=== PATIENT | male | born 1945 | race Caucasian/White ===

== ENCOUNTER → 2017-06-11 | Outpatient (CLI) | payer MEDICARE ==
[~2017-06-11] MED LIST: ALLO100T PO; ASPI81TA82 PO; ATOR40TA16 PO; ATOR40TA49 PO; BENI20TA5 PO; BENI40TA30 PO; CARV3.12 PO; CARV3.125 PO; FISH1000 PO; GEMF600T PO; HYDR200T3 PO; MULTTAB67 PO; PANT40TA3 PO; PERC5TAB12 PO; PRED1 PO; PROT40TA PO; VITA2000 PO
[2017-06-11 11:28] LABS: AUTOMATED NEUTROPHIL # 2.3 TH/MM3 (1.8-7.7); BASOPHIL % 0.5 % (0.0-2.0); EOSINOPHIL # 0.2 TH/MM3 (0-0.4); EOSINOPHIL % 4.1 % (0.0-4.0); HEMATOCRIT 41.3 % (39.0-51.0); HEMO FLAGS DIFF FINAL; MEAN CELL VOLUME 96.3 FL (80.0-100.0); MEAN CORPUSCULAR HEMOGLOBIN 32.4 PG (27.0-34.0); MEAN CORPUSCULAR HGB CONC 33.6 % (32.0-36.0); MONO % 12.5 % (0.0-8.0); NEUT % 57.9 % (16.0-70.0); PLATELET COUNT 176 TH/MM3 (150-450); RED BLOOD COUNT 4.29 MIL/MM3 (4.50-5.90); RED CELL DISTRIBUTION WIDTH 14.1 % (11.6-17.2); WHITE BLOOD COUNT 3.9 TH/MM3 (4.0-11.0)
[2017-06-11 11:31] LABS: BACTERIA, URINE RARE /hpf; BLOOD, URINE NEG (NEG); COMMENT (UR) CULT NOT INDICATED; CULTURE IF INDICATED CULT NOT INDICATED; GLUCOSE,URINE NEG (NEG); KETONE, URINE NEG (NEG); MUCUS URINE FEW /lpf (OCC); NITRITE,URINE NEG (NEG); URINE COLOR LIGHT-YELLOW (YELLW/STRAW)
[2017-06-11 11:41] LABS: APTT (PATIENT) 25.8 SEC (24.3-30.1); PROTHROMBIN TIME - PATIENT 10.7 SEC (9.8-11.6)
[2017-06-11 11:59] LABS: BICARBONATE 29.2 MEQ/L (21.0-32.0); POTASSIUM 4.4 MEQ/L (3.5-5.1)
--- NOTE | 2017-06-11 14:33 | RADRPT ---
EXAM DATE/TIME: 06/11/2017 11:52 [place] COMPARISON: No previous studies available for comparison. INDICATIONS : Evaluate for pneumonia, pneumothorax or communicable disease. Pre op right carotid endarterectomy. MEDICAL HISTORY : Hypertension. SURGICAL HISTORY : None. ENCOUNTER: Initial ACUITY: 1 day PAIN SCORE: 0/10 LOCATION: Bilateral chest FINDINGS: PA and lateral views of the chest demonstrate the lungs to be symmetrically aerated without evidence of mass, infiltrate or effusion. Calcified granuloma within the right midlung. The cardiomediastinal contours are unremarkable. Osseous structures are intact. CONCLUSION: No acute disease. Marvin Strauss Jr., MD on June 11, 2017 at 14:31 Board Certified Radiologist. This report was verified electronically.
--- NOTE | 2017-06-12 15:33 | EKG ---
Date Performed: 06/11/2017 Time Performed: 11:12:57 PTAGE: 71 years EKG: Sinus rhythm WITH OCCASIONAL VENTRICULAR PREMATURE COMPLEXES BORDERLINE ECG PREVIOUS TRACING 10/24/13 Since the prior tracing, the sinus tachycardia has resolved and the P VCs are new. Previously noted minimal ST depression is no longer evident. DOCTOR: Renae Doe Interpretating Date/Time 06/12/2017 15:32:48
== END ==
LOC: CPRE 10:51
PROVIDERS: ATTEND Surgery
DX: I65.21 Occlusion and stenosis of right carotid artery (principal); Z01.810 Encounter for preprocedural cardiovascular examination
CPT/HCPCS: 36415; 71020; 80048; 81001; 85025; 85610; 85730; 86850; 86900; 86901; 93005

== ENCOUNTER 2017-06-12 05:41 | Inpatient (IN) | payer MEDICARE ==
[~2017-06-12] VITALS: Ht 180.3 cm; Wt 94.1 kg
[~2017-06-12 05:41] MED LIST changes: -ASPI81TA82 PO; -ATOR40TA49 PO; -BENI40TA30 PO; -CARV3.125 PO; -FISH1000 PO; -PERC5TAB12 PO; -PRED1 PO; -PROT40TA PO
[2017-06-12] MEDS ORDERED: LACTATED RINGER'S 1000 ML IV PRN (06:00)
[2017-06-12] MEDS ORDERED: METOPROLOL TARTRATE 25 MG TAB PO PRN (06:00)
[2017-06-12] MEDS ORDERED: CHLORHEXIDINE GLUCONATE 2 % 1 PACK (2 CLOTHS) TOPICAL PRN (06:00)
[2017-06-12] MEDS ORDERED: INSULIN HUMAN REGULAR 1,000 UNITS/10 ML VIAL SQ PRN (06:00)
[2017-06-12] MEDS ORDERED: SODIUM CHLORID 0.9% 500 ML IV PRN (06:00)
[2017-06-12] MEDS ORDERED: POVIDONE IODINE 5% (ANTISEPSIS KIT) 4 APPLICATIONS EACH NARE PRN (06:00)
[2017-06-12] MEDS ORDERED: HEPARIN SODIUM - IV 10,000 UNITS/10 ML VIAL ONE (07:42)
[2017-06-12] MEDS ORDERED: BUPIVACAINE HCL PF 0.5% 30 ML VIAL ONE (07:42)
[2017-06-12] MEDS ORDERED: THROMBIN (TOPICAL) 20,000 UNIT SPRAY KIT ONE (07:43)
[2017-06-12] MEDS ORDERED: PROTAMINE SULFATE 50 MG/5 ML VIAL ONE (07:45)
[2017-06-12] MEDS ORDERED: DEXAMETHASONE SOD PHOS 4 MG/ML VIAL ONE (08:20)
[2017-06-12] MEDS ORDERED: FAMOTIDINE 20 MG/2 ML VIAL ONE (08:20)
[2017-06-12] MEDS ORDERED: ceFAZolin 2 GM PREMIX 50 ML ONE (08:39)
--- NOTE | 2017-06-12 08:40 | PD.VS.PN ---
Pre-operative Note Pre-operative diagnosis: symptomatic R carotid stenosis Planned procedure: R CEA Interval History: Pt has had no interval changes since seen in clinic on Sunday. Specifically, no more AF/TIA/CVA. Labs: no problems Blood: T&S Imaging: duplex reviewed: >80% R Carotid stenosis Orders: NPo Ancef 2g IV OCTOR Post-operative destination: CVICU/ISC Operative site marked: Yes Consent: Informed consent has been obtained from Armand Nava. I have explained the procedure in detail and discussed the risks, benefits, and potential complications. All questions have been answered. Patient contact information: (Melinda) [phone] Armand Sorto MD Jun 12, 2017 08:40
[2017-06-12] MEDS: ALLOPURINOL 100 MG TAB PO SCH ×2 (09:00→20:37)
[2017-06-12] MEDS: CARVEDILOL 3.125 MG TAB PO SCH ×2 (09:00→20:37)
[2017-06-12] MEDS ORDERED: HYDROmorphone HCL 2 MG TAB PO PRN (09:00)
[2017-06-12] MEDS: DOCUSATE SODIUM 100 MG CAP PO SCH ×2 (09:30→20:37)
[2017-06-12] MEDS: LOSARTAN 50 MG TAB PO SCH (09:45)
[2017-06-12] MEDS: MULTIVITAMIN TAB PO SCH (09:45)
[2017-06-12] MEDS: ASPIRIN 325 MG TAB PO SCH (10:00)
[2017-06-12] MEDS: HYDROXYCHLOROQUINE SULFATE 200 MG TAB PO SCH (10:00)
[2017-06-12] MEDS: GEMFIBROZIL 600 MG TAB PO SCH ×2 (10:00→20:37)
[2017-06-12] MEDS: CHOLECALCIFEROL (VIT D3) 1000 UNIT TAB PO SCH (10:00)
[2017-06-12] MEDS: PANTOPRAZOLE SOD 40 MG DELAYED RELEASE TAB PO SCH (10:00)
--- NOTE | 2017-06-12 11:46 | HHI.PR ---
Immediate Post Op Note Procedure Date: Jun 12, 2017 Pre Op Diagnosis: symptomatic R carotid stenosis Post Op Diagnosis: symptomatic R carotid stenosis Surgeon: Armand Sorto Heat Regulator(s): none Procedure: R CEA Findings: high carotid soft stenosis awoke neuro intact Complications: none Specimen(s) removed: none for pathology Estimated blood loss: 100mL Anesthesia: General Drains: None Fluids: 1300 mL x'oid; 350 mL UOP IVF Patient to: PACU Patient Condition: Good Implant/Devices: SEE IMPLANT LOG (if applicable) Date/Time of Procedure: SEE SURGICAL CARE RECORD Armand Sorto MD Jun 12, 2017 11:46
[2017-06-12] MEDS ORDERED: DO NOT ADM ANY ANTICOAGULANT DRUGS PRN (11:50)
[2017-06-12] MEDS ORDERED: PHENYLEPH/NS 1000 MCG/10 ML SYR IV ONE (12:00)
[2017-06-12] MEDS ORDERED: NEOSTIGMINE 3 MG/3 ML SYR IV ONE (12:00)
[2017-06-12] MEDS ORDERED: SODIUM CHLORID 0.9% 500 ML INJ 500 ML IV ONE (12:00)
[2017-06-12] MEDS ORDERED: PHENYLEPHRINE HCL 10 MG/ML VIAL IV ONE (12:00)
[2017-06-12] MEDS ORDERED: SODIUM CHLOR 0.9% 250 ML INJ 250 ML IV ONE (12:00)
[2017-06-12] MEDS ORDERED: PROPOFOL 200 MG/20 ML AMP IV ONE (12:00)
[2017-06-12] MEDS ORDERED: NORMOSOL R INJ 1,000 ML IV ONE (12:00)
[2017-06-12] MEDS ORDERED: ONDANSETRON HCL 4 MG/2 ML VIAL IV PUSH ONE (12:00)
[2017-06-12] MEDS: LACTATED RINGER'S 1000 ML INJ 1,000 ML IV SCH (12:10)
[2017-06-12] MEDS ORDERED: *morphine SULFATE 8 MG/ML PERIprocedure ONLY ONE (14:13)
[2017-06-12] MEDS ORDERED: METOPROLOL TARTRATE 5 MG/5 ML VIAL ONE (14:33)
--- NOTE | 2017-06-12 14:59 | PD.CONS ---
[facility] Service Critical Care Medicine Consult Requested By Vascular Surgery Service Reason for Consult Critical Care Primary Care Physician Helene Chadwick MD History of Present Illness 71 y/o man with repeated amaurosis fugax associated with high grade right carotid occlusive disease. Presented today to PACU following uneventful right carotid endarterectomy. Awake, alert, O X 3, cooperative. Protects airway well, breathing comfortably. Review of Systems ROS No chest pain or SOB. No headache. Past Family Social History Allergies: Coded Allergies: No Known Allergies (Unverified , 06/11/17) Past Medical History NSTEMI Basal cell carcinoma. Hypertension. Pre-diabetes GIST tumor (presented with hemorrhage) Physical Exam Vital Signs Vital Signs Date Time Temp Pulse Resp B/P (MAP) Pulse Ox O2 Delivery O2 Flow Rate FiO2 06/12/17 14:30 120 19 108/63 (78) 95 Nasal Cannula 2 06/12/17 14:00 110 12 126/68 (87) 95 Nasal Cannula 2 06/12/17 13:30 104 12 126/68 (87) 94 Nasal Cannula 2 06/12/17 13:00 105 15 132/69 (90) 94 Nasal Cannula 2 06/12/17 12:45 102 12 128/69 (88) 94 Nasal Cannula 2 06/12/17 12:30 98 14 129/64 (85) 94 Nasal Cannula 2 06/12/17 12:15 97 16 126/63 (84) 94 Nasal Cannula 2 06/12/17 12:00 90 14 140/69 (92) 93 Nasal Cannula 2 06/12/17 11:52 98.1 95 16 155/74 (101) 92 Nasal Cannula 2 06/12/17 07:15 98.0 81 18 142/82 (102) 96 Physical Exam P 127, SBP 108, R 14 nonlabored HeadL NL. Neck: Minimal swelling right neck, soft. No stridor or obstruction. Lungs: Clear. Heart: NL S1S2, tachycradia, No JVD, No m,r Abdomen: Benign, soft. Extremities; Warm,well perfused. Neuro: GAMALIEL, 2 mm, reactive briskly. Moves 4 limbs to command with 5/5 strength. O X 3, conversant, speech clear. Assessment and Plan Assessment and Plan Assessment: 1. Extracranial carotid occlusive disease -> Right carotid endarterectomy. 2. Preop amaurosis fugax right eye. 3. Pre-diabetes. 4. Hx hypertension. 5. Tachycardia Plan: 1. Neuro checks. 2. SSI for euglycemia prn - loose coverage, avoid hypoglycemia. 3. Antiplatelet rx per Dr. Sorto. 4. Lopressor 2.5 mg iv q3h prn P > 115. 5. Continued scheduled Coreg. Overall impression: Normal neurological exam following right carotid endarterectomy. Moderate tachycardia, cover with prn iv lopressor. Watch glucose closely. Hermilo Correa MD Jun 12, 2017 14:59
[2017-06-12] MEDS ORDERED: GLUCAGON 1 MG/ML VIAL OTHER PRN (15:00)
[2017-06-12] MEDS ORDERED: DEXTROSE 50% IN WATER 50 ML VIAL(D50) IV PRN (15:00)
[2017-06-12] MEDS ORDERED: METOPROLOL TARTRATE 5 MG/5 ML VIAL IV PUSH PRN (15:45)
[2017-06-12] MEDS: INSULIN ASPART SUPPLEMENTAL SCALE SQ SCH ×2 (16:00→21:04)
[2017-06-12 16:45] VITALS: PULSE 123
--- NOTE | 2017-06-12 17:16 | PD.VS.PN ---
Subjective POD #: 0 Procedure(s): R CEA for symptomatic carotid stenosis Subjective/Hospital Course no HARRELL. Feels well overall migue some diet so far Objective Vitals/I&O Date Time Temp Pulse Resp B/P (MAP) Pulse Ox O2 Delivery O2 Flow Rate FiO2 06/12/17 16:00 98.7 112 17 140/78 (98) 94 Nasal Cannula 2 06/12/17 15:30 120 16 155/71 (99) 95 Nasal Cannula 2 06/12/17 15:00 111 14 129/72 (91) 95 Nasal Cannula 2 06/12/17 14:30 120 19 108/63 (78) 95 Nasal Cannula 2 06/12/17 14:00 110 12 126/68 (87) 95 Nasal Cannula 2 06/12/17 13:30 104 12 126/68 (87) 94 Nasal Cannula 2 06/12/17 13:00 105 15 132/69 (90) 94 Nasal Cannula 2 06/12/17 12:45 102 12 128/69 (88) 94 Nasal Cannula 2 06/12/17 12:30 98 14 129/64 (85) 94 Nasal Cannula 2 06/12/17 12:15 97 16 126/63 (84) 94 Nasal Cannula 2 06/12/17 12:00 90 14 140/69 (92) 93 Nasal Cannula 2 06/12/17 11:52 98.1 95 16 155/74 (101) 92 Nasal Cannula 2 06/12/17 07:15 98.0 81 18 142/82 (102) 96 06/12/17 06/12/17 06/12/17 07:00 15:00 23:00 Intake Total 1400 ml 100 ml Output Total 450 ml 350 ml Balance 950 ml -250 ml Exam: R neck incision c/d/i neck soft asymmetric smile but CN XII intact EDUARDO x 4 Assessment and Plan Plan 1. Continue neuro checks 2. BP control: SBP goal 140 3. HR control 4. Reg diet 5. Anticipate d/c sanchez tomorrow and d/c to home Armand Sorto MD Jun 12, 2017 17:16
[2017-06-12 18:00] VITALS: PULSE 114
[2017-06-12 20:00] VITALS: PULSE 119
[2017-06-12] MEDS ORDERED: ATORVASTATIN 40 MG TAB PO SCH (21:00)
[2017-06-12 22:00] VITALS: PULSE 77
[2017-06-13] VITALS (7 sets, daily range): BP systolic 130; BP diastolic 73; PULSE 73–112; RESP 22; TEMP 98.4; O2SAT 95
--- NOTE | 2017-06-13 00:04 | MP ---
cc: ABUNDIO SORTO MD DATE OF SURGERY 06/12/17 PREOPERATIVE DIAGNOSIS Right symptomatic carotid stenosis. POSTOPERATIVE DIAGNOSIS Right symptomatic carotid stenosis. PROCEDURE Right carotid endarterectomy. MEDICATIONS Abundio Sorto MD ANESTHESIA General. INDICATION Mr. Nava is a 71-year-old gentleman with a symptomatic right carotid stenosis that has manifested in several episodes amaurosis. He is taken to the operating room for carotid endarterectomy. DESCRIPTION OF PROCEDURE Informed consent was obtained and the patient is taken to the operating room and placed supine on the operating table. An appropriate time-out was taken to ensure the patient's identity, the operative site and planned procedure. Administration of 2 grams of Ancef was initiated prior to skin incision and will be discontinued after single preoperative dose. Everyone in the room agreed to timeout and we proceeded. His right neck was prepped and draped. Incision was made along the anterior border of sternocleidomastoid, carried down to subcutaneous tissue with electrocautery. The platysma was divided and the facial vein was identified and dissected free and ligated with 3-0 silks. The jugular vein was identified and the medial branches of it were divided between 3-0 silks and this provided exposure to the carotid artery. Common carotid artery was encircled with vessel loop. The external carotid artery, superior thyroid and distal internal carotid artery was identified and dissected free and encircled with vessel loop. The hypoglossal nerve was easily identified and maintained visualization throughout the entire procedure. The patient was systemically heparinized, once the ACT was over 250 distal and proximal of the carotid artery were obtained with profunda clamps and a longitudinal arteriotomy was made with an 11 blade and extended with Oneal scissors. The plaque was soft and extended up several centimeters past the carotid bifurcation. The carotid was endarterectomized without any difficulty and a solitary tacking suture was made at the distal aspect of the suture line. The endarterectomized artery was carefully and copiously flushed with heparinized saline and the artery was closed by sewing on a bovine pericardial patch which was affixed with 5-0 Prolene suture. At the completion it was flushed and noted to be hemostatic with several repair sutures. There was a nice Doppler signal in the distal internal carotid artery as well as the external carotid artery. The heparin reversed with protamine. Hemostasis was achieved and the wound was closed with 2-0 Polysorb, 3-0 Polysorb and 4-0 Monocryl. Sponge, needle counts were correct at the end of the case. I was present for the entire procedure and at the conclusion of the case the patient was awoken and was neurologically intact. MD MOOK Calderon/EMILY /4:53 PM /11:51 PM MTDD
[2017-06-13 05:43] LABS: HEMATOCRIT 38.4 % (39.0-51.0); MEAN CELL VOLUME 96.4 FL (80.0-100.0); MEAN CORPUSCULAR HGB CONC 34.2 % (32.0-36.0); PLATELET COUNT 165 TH/MM3 (150-450); RED BLOOD COUNT 3.98 MIL/MM3 (4.50-5.90); RED CELL DISTRIBUTION WIDTH 13.8 % (11.6-17.2); REVIEW FLAG FINAL; WHITE BLOOD COUNT 8.3 TH/MM3 (4.0-11.0)
[2017-06-13 06:04] LABS: BICARBONATE 28.1 MEQ/L (21.0-32.0); POTASSIUM 4.2 MEQ/L (3.5-5.1)
[2017-06-13] MEDS: INSULIN ASPART SUPPLEMENTAL SCALE SQ SCH (07:00)
[2017-06-13] MEDS: LOSARTAN 50 MG TAB PO SCH (08:44)
[2017-06-13] MEDS: GEMFIBROZIL 600 MG TAB PO SCH (08:44)
[2017-06-13] MEDS: ASPIRIN 325 MG TAB PO SCH (08:44)
[2017-06-13] MEDS: PANTOPRAZOLE SOD 40 MG DELAYED RELEASE TAB PO SCH (08:44)
[2017-06-13] MEDS: DOCUSATE SODIUM 100 MG CAP PO SCH (08:44)
[2017-06-13] MEDS: ALLOPURINOL 100 MG TAB PO SCH (08:44)
[2017-06-13] MEDS: CHOLECALCIFEROL (VIT D3) 1000 UNIT TAB PO SCH (08:44)
[2017-06-13] MEDS: HYDROXYCHLOROQUINE SULFATE 200 MG TAB PO SCH (08:44)
[2017-06-13] MEDS: MULTIVITAMIN TAB PO SCH (08:44)
[2017-06-13] MEDS: CARVEDILOL 3.125 MG TAB PO SCH (08:45)
[2017-06-13] MEDS: LACTATED RINGER'S 1000 ML INJ 1,000 ML IV SCH (09:49)
--- NOTE | 2017-06-13 09:51 | PD.VS.PN ---
Subjective POD #: 1 Procedure(s): R CEA for symptomatic carotid stenosis Subjective/Hospital Course Pt sitting in chair eating breakfast w/o difficulty Pt denies H/a Incision to R side of neck intact with surgical glue Objective Vitals/I&O Date Time Temp Pulse Resp B/P (MAP) Pulse Ox O2 Delivery O2 Flow Rate FiO2 06/13/17 08:00 84 06/13/17 07:00 98 Nasal Cannula 2.00 06/13/17 06:00 83 06/13/17 04:08 95 Nasal Cannula 2.00 06/13/17 04:00 90 06/13/17 02:00 73 06/13/17 00:00 93 06/12/17 22:00 77 06/12/17 20:00 119 06/12/17 19:00 95 Nasal Cannula 2.00 06/12/17 18:00 114 06/12/17 16:45 97 Nasal Cannula 2.00 06/12/17 16:45 123 06/12/17 16:00 98.7 112 17 140/78 (98) 94 Nasal Cannula 2 06/12/17 15:30 120 16 155/71 (99) 95 Nasal Cannula 2 06/12/17 15:00 111 14 129/72 (91) 95 Nasal Cannula 2 06/12/17 14:30 120 19 108/63 (78) 95 Nasal Cannula 2 06/12/17 14:00 110 12 126/68 (87) 95 Nasal Cannula 2 06/12/17 13:30 104 12 126/68 (87) 94 Nasal Cannula 2 06/12/17 13:00 105 15 132/69 (90) 94 Nasal Cannula 2 06/12/17 12:45 102 12 128/69 (88) 94 Nasal Cannula 2 06/12/17 12:30 98 14 129/64 (85) 94 Nasal Cannula 2 06/12/17 12:15 97 16 126/63 (84) 94 Nasal Cannula 2 06/12/17 12:00 90 14 140/69 (92) 93 Nasal Cannula 2 06/12/17 11:52 98.1 95 16 155/74 (101) 92 Nasal Cannula 2 06/13/17 06/13/17 06/13/17 07:00 15:00 23:00 Intake Total 814 ml Output Total 1750 ml Balance -936 ml Exam: GENERAL: A&OX3, GCS15,NAD SKIN: Warm and dry NECK: Incision to right side of neck with swelling present Pt w/ improved right sided facial deficit (right lip) Pt w/o speech or swallowing deficit Pt denies headache, unilateral weakness or visual changes Laboratory Laboratory Tests Test 06/12/17 17:00 06/13/17 04:17 Nasal Screen MRSA (PCR) MRSA NOT DETECTED White Blood Count 8.3 Red Blood Count 3.98 Hemoglobin 13.2 Hematocrit 38.4 Mean Corpuscular Volume 96.4 Mean Corpuscular Hemoglobin 33.0 Mean Corpuscular Hemoglobin Concent 34.2 Red Cell Distribution Width 13.8 Platelet Count 165 Mean Platelet Volume 8.2 Blood Urea Nitrogen 13 Creatinine 1.21 Random Glucose 114 Calcium Level 8.8 Sodium Level 142 Potassium Level 4.2 Chloride Level 107 Carbon Dioxide Level 28.1 Anion Gap 7 Estimat Glomerular Filtration Rate 59 Assessment and Plan Assessment: (1) Carotid artery disease without cerebral infarction Plan 1. Continue neuro checks 2. BP control: SBP goal 140 3. HR control 4. Reg diet 5. Anticipate d/c sanchez tomorrow and d/c to home Discharge Planning Pt is POD 1 R CEA w/o complications Plan D/C to home today with f/u next week in our OPC Pt agreed w/ plan Arranged OP f/u Michelle COSBY [facility] [phone] Michelle Valencia Jun 13, 2017 09:51
[2017-06-13] MEDS ORDERED: PERC5TAB12 PO (09:55)
--- NOTE | 2017-06-13 10:06 | PD.VS.DC ---
Discharge Summary Admission Date: Jun 12, 2017 at 05:41 Discharge Date: Jun 13, 2017 Admission Diagnosis: (1) Carotid artery disease without cerebral infarction (2) Anemia due to gastrointestinal blood loss (3) Non-ST elevation SC (NSTEMI) Discharge Diagnosis: (1) Carotid artery disease without cerebral infarction ICD Codes: I77.9 - Disorder of arteries and arterioles, unspecified Status: Acute Brief History from admission 71 y/o man with repeated amaurosis fugax associated with high grade right carotid occlusive disease Procedure(s): R CEA for symptomatic carotid stenosis Significant Findings GENERAL: A&OX3, GCS15,NAD SKIN: Warm and dry NECK: Incision to right side of neck with swelling present Pt w/ improved right sided facial deficit (right lip) Pt w/o speech or swallowing deficit Pt denies headache, unilateral weakness or visual changes Laboratory Tests Test 06/12/17 17:00 06/13/17 04:17 Red Blood Count 3.98 MIL/MM3 (4.50-5.90) Hematocrit 38.4 % (39.0-51.0) Random Glucose 114 MG/DL (74-106) Estimat Glomerular Filtration Rate 59 ML/MIN (>89) Hospital Course: 71 y/o man with repeated amaurosis fugax associated with high grade right carotid occlusive disease Pt with a Hx of symptomatic carotid stenosis R CEA intervention done on 06/12/17 w/o complications Pt to be d/c home with Allergies Coded Allergies Type Severity Reaction Last Updated Verified No Known Allergies 06/11/17 No 06/11/17 06/11/17 06/12/17 06/12/17 06/13/17 06/13/17 06:00 18:00 06:00 18:00 06:00 18:00 Intake Total 1959 ml 814 ml Output Total 1200 ml 1750 ml Balance 759 ml -936 ml Intake Oral 440 ml 360 ml IV Total 219 ml 454 ml Other 1300 ml Output Urine Total 1100 ml 1750 ml Estimated Blood Loss 100 ml # Bowel Movements 0 0 Laboratory Tests Test 06/12/17 17:00 06/13/17 04:17 Nasal Screen MRSA (PCR) MRSA NOT DETECTED White Blood Count 8.3 TH/MM3 Red Blood Count 3.98 MIL/MM3 Hemoglobin 13.2 GM/DL Hematocrit 38.4 % Mean Corpuscular Volume 96.4 FL Mean Corpuscular Hemoglobin 33.0 PG Mean Corpuscular Hemoglobin Concent 34.2 % Red Cell Distribution Width 13.8 % Platelet Count 165 TH/MM3 Mean Platelet Volume 8.2 FL Blood Urea Nitrogen 13 MG/DL Creatinine 1.21 MG/DL Random Glucose 114 MG/DL Calcium Level 8.8 MG/DL Sodium Level 142 MEQ/L Potassium Level 4.2 MEQ/L Chloride Level 107 MEQ/L Carbon Dioxide Level 28.1 MEQ/L Anion Gap 7 MEQ/L Estimat Glomerular Filtration Rate 59 ML/MIN Orders Procedure Category Date Status Time Lactated Ringer's MED 06/12/17 In Process 1000 Ml Inj (Lr 1000 M 06:00 Metoprolol Tartrate MED 06/12/17 In Process (Lopressor) 06:00 Povidone Iod 5% MED 06/12/17 In Process Antisepsis Kit 06:00 Chlorhexidine 2% MED 06/12/17 In Process Cloth (Chlorhexidine 06:00 Insulin Human Regular MED 06/12/17 In Process Inj (Novolin R Inj 06:00 Sodium Chlorid 0.9% MED 06/12/17 In Process 500 Ml Inj (Ns 500 M 06:00 Heparin Inj (Heparin MED 06/12/17 Complete Inj) 07:42 Bupivacaine Pf 0.5% MED 06/12/17 Complete Inj (Marcaine Pf 0.5 07:42 Thrombin Top [place] MED 06/12/17 Complete (Thrombin Top [place]) 07:43 Protamine Sulfate Inj MED 06/12/17 Complete (Protamine Sulfate 07:45 Dexamethasone Inj MED 06/12/17 Complete (Decadron Inj) 08:20 Famotidine Inj MED 06/12/17 Complete (Pepcid Inj) 08:20 Cefazolin 2 Gm Premix MED 06/12/17 Complete (Ancef 2 Gm Premix 08:39 Admit To Inpatient ADMITTING 06/12/17 Transmitted Code Status CODE 06/12/17 Transmitted 08:59 Salt Cutter / BISI 06/12/17 In Process Telemetry 08:59 Activity Oob Ad Marycarmen BISI 06/13/17 In Process 08:59 Activity Bed Rest BISI 06/12/17 In Process 08:59 Notify Parameters BISI 06/12/17 In Process 08:59 Diet Heart Healthy DIET 06/12/17 Transmitted Breakfast Basic Metabolic Panel LAB 06/13/17 Complete (Bmp) 06:00 Cbc No Diff, Includes LAB 06/13/17 Complete Plts 06:00 Consult Supervisor Nut Processing CONS 06/12/17 Transmitted Lactated Ringer's MED 06/12/17 In Process 1000 Ml Inj (Lr 1000 M 10:00 Aspirin (Aspirin) MED 06/12/17 In Process 10:00 Pantoprazole MED 06/12/17 In Process (Protonix) 10:00 Atorvastatin (Lipitor) MED 06/12/17 In Process 21:00 Oxycodone (Roxicodone) MED 06/12/17 In Process 09:00 Hydromorphone MED 06/12/17 In Process (Dilaudid) 09:00 Docusate Sodium MED 06/12/17 In Process (Colace) 09:30 Inpatient ADMITTING 06/12/17 Transmitted Certification Allopurinol (Zyloprim) MED 06/12/17 In Process 09:00 Carvedilol (Coreg) MED 06/12/17 In Process 09:00 Cholecalciferol MED 06/12/17 In Process (Vitamin D3) 10:00 Gemfibrozil (Lopid) MED 06/12/17 In Process 10:00 Hydroxychloroquine MED 06/12/17 In Process (Plaquenil) 10:00 Multivitamin MED 06/12/17 In Process (Theragran) 09:45 Losartan (Cozaar) MED 06/12/17 In Process 09:45 (Hub Use Only)Inp Phy CONS 06/12/17 Transmitted Cons/Ref Urinary Catheter BISI 06/12/17 In Process Management 09:29 Fentanyl Inj MED 06/12/17 Complete (Fentanyl Inj) 12:03 Misc Nursing MED 06/12/17 In Process Information 11:50 *Morphine Inj MED 06/12/17 Complete (*Morphine Inj 14:13 Metoprolol Tartrate MED 06/12/17 Complete Inj (Lopressor Inj) 14:33 Am Admit Pre Op Care [facility] 06/12/17 Complete Bedside Glucose BISI 06/12/17 In Process 14:59 Blood Glucose Goal BISI 06/12/17 In Process (Criteria) 14:59 Hypoglycemia 70 Mg/Dl BISI 06/12/17 In Process Or < 14:[address]: Other BISI 06/12/17 In Process 14:59 Dextrose 50% In Gildardo MED 06/12/17 In Process (Vial) Inj (D50w (Vi 15:00 Glucagon Inj MED 06/12/17 In Process (Glucagon Inj) 15:00 Insulin Aspart MED 06/12/17 In Process Supplemtl Scale 16:00 Metoprolol Tartrate MED 06/12/17 In Process Inj (Lopressor Inj) 15:45 Document BISI 06/12/17 In Process Anticoagulant Alert BISI 06/12/17 In Process ^ Sling BISI 06/12/17 In Process Resp Oxygen Abe C RSP 06/12/17 Logged Titrat 1-4 L Mrsa Pcr Surveillance LAB 06/12/17 Complete 17:13 Class Iv Pacu Ea 30 [facility] 06/[facility]17 Complete MIN General/Pacu [facility] 06/12/17 Complete Post Anesthesia Oxygen [facility] 06/12/17 Complete Pacu Isc Holding [facility] 06/12/17 Complete Hourly Sling Cradle Arm ORTHO 06/13/17 Complete Attending Discharge DISCHARGE 06/13/17 Transmitted Order Vital Signs Date Time Temp Pulse Resp B/P (MAP) Pulse Ox O2 Delivery O2 Flow Rate FiO2 06/13/17 08:00 84 06/13/17 07:00 98 Nasal Cannula 2.00 06/13/17 06:00 83 06/13/17 04:08 95 Nasal Cannula 2.00 06/13/17 04:00 90 06/13/17 02:00 73 06/13/17 00:00 93 06/12/17 22:00 77 06/12/17 20:00 119 06/12/17 19:00 95 Nasal Cannula 2.00 06/12/17 18:00 114 06/12/17 16:45 97 Nasal Cannula 2.00 06/12/17 16:45 123 06/12/17 16:00 98.7 112 17 140/78 (98) 94 Nasal Cannula 2 06/12/17 15:30 120 16 155/71 (99) 95 Nasal Cannula 2 06/12/17 15:00 111 14 129/72 (91) 95 Nasal Cannula 2 06/12/17 14:30 120 19 108/63 (78) 95 Nasal Cannula 2 06/12/17 14:00 110 12 126/68 (87) 95 Nasal Cannula 2 06/12/17 13:30 104 12 126/68 (87) 94 Nasal Cannula 2 06/12/17 13:00 105 15 132/69 (90) 94 Nasal Cannula 2 06/12/17 12:45 102 12 128/69 (88) 94 Nasal Cannula 2 06/12/17 12:30 98 14 129/64 (85) 94 Nasal Cannula 2 06/12/17 12:15 97 16 126/63 (84) 94 Nasal Cannula 2 06/12/17 12:00 90 14 140/69 (92) 93 Nasal Cannula 2 06/12/17 11:52 98.1 95 16 155/74 (101) 92 Nasal Cannula 2 06/12/17 07:15 98.0 81 18 142/82 (102) 96 Discharge Condition: Good Discharge Disposition: Discharge Home Discharge Instructions: F/u in our out patient clinic on 06/20/17 at 1PM May Shower tomorrow AM NO TUB baths, swimming or submerging in an ocean until incision is fully healed Do not apply creams or ointments to surgical incision as it may loosen the surgical glue Leave incision open to air Call the office to report any new onset increased redness, drainage or swelling May apply a warm compress to incision for swelling Call the office with any questions or concerns Michelle COSBY [facility] [phone] Any questions or concerns: Call [facility] at [facility] [phone] Michelle Valencia Jun 13, 2017 10:06
== END 2017-06-13 11:46 | disposition home or self-care (01) | DRG 39 ==
LOC: HSDI 05:41 → N03A 16:50
PROVIDERS: ADMIT Surgery; ATTEND Surgery
PROC: 03UH0KZ Supplement Right Common Carotid Artery with Nonautologous Tissue Substitute, Open Approach (ICD-10-PCS; 2017-06-12)
PROC: 03CH0Z6 (ICD-10-PCS; principal; 2017-06-12 08:45)
DX: I65.21 Occlusion and stenosis of right carotid artery (principal); I10 Essential (primary) hypertension; R73.03 Prediabetes; I25.2 Old myocardial infarction; K21.9 Gastro-esophageal reflux disease without esophagitis; R00.0 Tachycardia, unspecified; E78.5 Hyperlipidemia, unspecified; Z85.00 Personal history of malignant neoplasm of unspecified digestive organ; Z85.828 Personal history of other malignant neoplasm of skin; Z86.73 Personal history of transient ischemic attack (TIA), and cerebral infarction without residual deficits
CPT/HCPCS: 36415; 71020; 80048; 81001; 82948; 85025; 85027; 85610; 85730; 86850; 86900; 86901; 87641; 93005; C1768; J0690; J1100; J1644; J1815; J2270; J2370; J2405; J2710; J2720; J3010; J7040; J7050; J7120